=== PATIENT | male | born 1935 | race Caucasian/White ===

== ENCOUNTER → 2016-12-14 | Outpatient (CLI) | payer MEDICARE ==
[~2016-12-14] MED LIST: ASPIRIN LO-DOSE81 MG PO; B COMPLEX1 EACH PO; CPAP INH; ENALAPRIL-HCTZ1 EACH PO; FISH OIL 1,2001 EAC2 PO; LEVOTHROID (SY25 MCG PO; LIPITOR40 MG PO; VITAMIN C1000 MG PO; VITAMIN D-40400 UNIT PO; VITAMIN E400 UNI1 PO
== END | disposition disaster alternative care site (69) ==
LOC: LGSMG 12:11
DX: R80.9 Proteinuria, unspecified (principal)

== ENCOUNTER → 2017-01-12 | Outpatient (CLI) | payer MEDICARE | END | disposition disaster alternative care site (69) | LOC: LGSMG 10:57 | DX: N18.3 Chronic kidney disease, stage 3 (moderate) (principal); R80.9 Proteinuria, unspecified ==

== ENCOUNTER → 2017-01-14 | Outpatient (CLI) | payer MEDICARE | END | disposition disaster alternative care site (69) | LOC: GRAD 01-12 11:00 | DX: N18.3 Chronic kidney disease, stage 3 (moderate) (principal); N32.89 Other specified disorders of bladder ==

== ENCOUNTER → 2017-02-22 | Outpatient (CLI) | payer MEDICARE | END | disposition disaster alternative care site (69) | LOC: LGSMG 09:56 | DX: N18.3 Chronic kidney disease, stage 3 (moderate) (principal); R80.9 Proteinuria, unspecified ==

== ENCOUNTER → 2017-03-02 | Outpatient (CLI) | payer MEDICARE | END | disposition disaster alternative care site (69) | LOC: GOPD 02-28 | PROVIDERS: Internal Medicine Nephrology | PROC: 0TB03ZX Excision of Right Kidney, Percutaneous Approach, Diagnostic (ICD-10-PCS; principal; 2017-03-02) | DX: N18.3 Chronic kidney disease, stage 3 (moderate) (principal) ==

== ENCOUNTER → 2017-03-11 | Outpatient (CLI) | payer MEDICARE | END | disposition disaster alternative care site (69) | LOC: GRAD 11:50 | DX: L03.311 Cellulitis of abdominal wall (principal) | CPT/HCPCS: A9503 ==

== ENCOUNTER → 2017-03-28 | Outpatient (CLI) | payer MEDICARE | END | disposition disaster alternative care site (69) | LOC: GRAD 03-23 09:00 | DX: L03.311 Cellulitis of abdominal wall (principal) | CPT/HCPCS: A9556 ==